=== PATIENT | male | born 1930 | race Caucasian/White ===

== ENCOUNTER 2018-05-25 13:38 | Emergency (ER) | payer MEDICARE ==
[~2018-05-25] VITALS: Ht 154.9 cm; Wt 83.9 kg
[~2018-05-25 13:38] MED LIST: ACETAMINOPHEN-1 EAC1 PO; ALBUTEROL; ALBUTEROL NEB; ALBUTEROL SULFAT2 MG PO; ALBUTEROL2.5 MG/31 INH; ALDACTAZIDE 251 EAC1 PO; ALDACTONE25 MG; AMBEREN; ASPIR 8181 MG PO; CARDURA4 MG PO; CENTRUM SILVER1 EAC4 PO; COZAAR 50 MG TA50 M2; CRESTOR10 MG PO; DULERA 100 MCG/13 GM; FIBER LAX625 MG; FIBER LAXATIVE625 MG PO; FIBER TABS625 MG PO; FINASTERIDE5 MG PO; FOLIC ACID 40400 MC1 PO; FOLIC ACID0.4 MG; FOLIC ACID1 MG PO; GENTEAL SEVERE10 GM OP; HYDROCHLOROTHIA25 M1 PO; LAMICTAL100 MG PO; LIPITOR10 MG PO; MOBIC15 MG PO; MUCUS RELIEF600 MG PO; MULTIVITAMINS PO; PROSCAR 5MG TABL5 MG PO; REFRESH P.M. O3.5 G2 OP; SINGULAIR 10 MG10 M1 PO; SYMBICORT160 MCG/4. INH; TRAVATAN 0.004%5 ML; TRAVATAN Z5 ML OPHTHALMIC; TRIAMCINOLONE TOP; VERAPAMIL E.R240 M1 PO; VERAPAMIL ER240 MG PO; VITAMIN D1000 UNI1 PO; VITAMIN D2000 UNIT PO; VITAMINC500 PO; ZOFRAN ODT4 MG PO; ZYRTEC 10 MG TA10 MG PO; [UNRECOGNIZED DRUG - OTHER] TOP
[2018-05-25 16:30] VITALS: BP 122/73
== END 2018-05-25 16:30 | disposition home or self-care (01) ==
LOC: M.ERS 13:38
DX: S93.491A Sprain of other ligament of right ankle, initial encounter (principal); J44.9 Chronic obstructive pulmonary disease, unspecified; I10 Essential (primary) hypertension; E78.5 Hyperlipidemia, unspecified; I71.4 Abdominal aortic aneurysm, without rupture; M19.90 Unspecified osteoarthritis, unspecified site; G47.30 Sleep apnea, unspecified; Z86.73 Personal history of transient ischemic attack (TIA), and cerebral infarction without residual deficits; Z96.653 Presence of artificial knee joint, bilateral; W00.0XXA Fall on same level due to ice and snow, initial encounter; Y93.89 Activity, other specified; Y92.89 Other specified places as the place of occurrence of the external cause; Y99.8 Other external cause status